=== PATIENT | female | born 1990 | race Caucasian/White ===

== ENCOUNTER 2016-11-10 19:52 | Inpatient (IN) ==
[2016-11-10] MEDS ORDERED: ONDANSETRON 4 MG/2 ML VIAL IV PRN (20:14)
[2016-11-10] MEDS ORDERED: BUTORPHANOL 2 MG/ML VIAL IV PRN (20:14)
[2016-11-10 20:48] LABS: Basophils # 0.1 10*3/uL (0.0-0.2); Basophils % 0.4 % (0.0-0.8); Eosinophils % 0.2 % (0.00-10.9); Hematocrit 32.4 VOL% (35.7-47.0); Hemoglobin 11.3 GM/DL (12.0-16.0); Immature Granulocytes % 1.7 %; Immature Granulocytes Absolute 0.23 #; Lymphocytes # 2.3 10*3/uL (1.4-4.0); Mean Corpuscular HGB Conc 34.9 GM/DL (32-36); Mean Corpuscular Hemoglobin 31 PG (27-34); Mean Corpuscular Volume 87.6 FL (87-102); Mean Platelet Volume 10.7 FL (9.6-12.0); Monocytes # 0.8 10*3/uL (0.11-0.8); Monocytes % 5.8 % (1.7-12.7); Neutrophils # 10.2 10*3/uL (1.4-7.4); Neutrophils % 74.9 % (38.7-73.9); Platelet Count 210 T/CUMM (130-400); Red Cell Distribution Width 14.5 % (9.3-17.3); White Blood Count 13.7 T/CUMM (4-12)
[2016-11-10 21:18] LABS: Alanine Aminotransferase 10 U/L (13-56); Albumin 2.5 G/DL (3.4-5.0); Alkaline Phosphatase 172 U/L (45-117); Aspartate Amino Transferase 10 U/L (0-37); Bilirubin,Total < 0.39 MG/DL (0.2-1.0); Blood Urea Nitrogen 12 MG/DL (7-18); Calcium 9.1 MG/DL (8.5-10.1); Glucose 115 MG/DL (74-106); Osmolality,Calculated 279.4 MOS/KG (273-304); Sodium 140 MMOL/L (136-145); Total Protein 6.6 G/DL (6.4-8.3)
[2016-11-10] MEDS ORDERED: DINOPROSTONE 10 MG VAG.INSERT VAG ONE ×2 (21:58→22:00)
[2016-11-10] MEDS: LACTATED RINGERS 1,000 ML IV SCH (22:09)
[2016-11-11] MEDS: LACTATED RINGERS 1,000 ML IV SCH ×3 (02:56→20:44)
[2016-11-11] MEDS ORDERED: DINOPROSTONE 10 MG VAG.INSERT VAG ONE (06:30)
[2016-11-11] MEDS ORDERED: OXYTOCIN/LR 20 UNIT/1,000 ML BAG IV SCH (07:30)
[2016-11-11] MEDS ORDERED: LACTATED RINGERS 1,000 ML IV ONE (14:42)
[2016-11-11] MEDS ORDERED: FAMOTIDINE 20 MG/2 ML VIAL IV ONE (14:42)
[2016-11-11] MEDS ORDERED: CITRIC ACID/SODIUM CITRATE 30 ML UDCUP PO ONE (14:42)
[2016-11-11] MEDS ORDERED: hydrOXYzine HCL 25 MG/1 ML VIAL IM PRN (14:43)
[2016-11-11] MEDS ORDERED: diphenhydrAMINE 50 MG/1 ML VIAL IV PRN ×2 (14:43)
[2016-11-11] MEDS ORDERED: PROMETHAZINE 25 MG/1 ML VIAL IM ONE (14:43)
[2016-11-11] MEDS ORDERED: fentaNYL 2 MCG/ROPIV 0.2% EPID 150 ML EPIDURAL SCH (14:43)
[2016-11-11] MEDS ORDERED: ePHEDrine 50 MG/ML AMP IV PRN (14:43)
[2016-11-11] MEDS ORDERED: ONDANSETRON 4 MG/2 ML VIAL ONE (17:10)
[2016-11-11] MEDS ORDERED: LIDOCAINE 2%/EPI 20 ML VIAL ONE (17:10)
[2016-11-11] MEDS ORDERED: PROPOFOL 200 MG/20 ML VIAL IV ONE (17:10)
[2016-11-11] MEDS ORDERED: SUCCINYLCHOLINE 200 MG/10 ML VIAL ONE (17:10)
--- NOTE | 2016-11-11 18:46 | Event Note ---
s/p epidural pelvic -/-3 ... little change from earlier today. IUPC showes a good contraction pattern. I have recommended a .
[2016-11-11] MEDS ORDERED: METHYLERGONOVINE 0.2 MG/1 ML AMP ONE (21:23)
[2016-11-11] MEDS ORDERED: OXYTOCIN 10 UNIT/ML VIAL ONE (21:26)
[2016-11-11] MEDS ORDERED: miSOPROStol 200 MCG TABLET ONE (21:35)
--- NOTE | 2016-11-11 21:53 | Operative Note ---
Date of procedure: 11/11/16 Pre-op diagnosis: IUP at 39 weeks, FTP past 3 cm Post-op diagnosis: same Procedure: Primary LTCS findings: male, vertex, Nuchal x 1, wt 7 pounds 13 ounces, apgars 4 and 8 normal uterus tubes ovaries Procedure: The patient was admitted for a induction she received Cervidil and Pitocin and never progressed past 3 cm so a section was in order. Risks benefits alternatives and complications were reviewed with the patient patient was amenable to procedure patient was thus taken back to the operating room where epidural anesthesia was not found to be adequate so general anesthesia was required. After general anesthesia induction immediately a Pfannenstiel skin incision was made and carried out to the underlying fascia the fascia was incised in the midline and extended laterally with Byrne scissors. Superior aspect of the fascial incision was dissected off the rectus muscle the same was done with the inferior aspect of the fascial incision. The rectus muscle was divided in the midline the peritoneum identified and entered sharply with Metzenbaum scissors extended superiorly and inferiorly with good visualization of the bladder. The bladder blade was inserted the vesicouterine peritoneum identified and entered sharply with Metzenbaum scissors extended laterally and the bladder flap was created digitally. The lower uterine segment was incised and extended laterally and superiorly in the infant's head was delivered atraumatically the cord was noted to be wrapped around the nuchal and was easily reduced and the rest of the infant was delivered the cord was clamped and cut and the was handed off to the waiting nurse unit. The placenta was removed manually the uterus cleared of all clots and debris with a clean dry sponge. The uterus was then exteriorized in the lower uterine segment was repaired using 0 Vicryl in a running locked fashion with a second imbricating layer to achieve excellent hemostasis. The tubes and ovaries look within normal limits. At this point the uterus was not bleeding but it was somewhat atonic a total of 20 cc of pit was injected intramuscularly into the uterus directly. 0.2 Methergine was also given about 10 minutes prior to the Pitocin injecting. Throughout this process the hemostasis was noted. The uterus was then introduced back into the uterine cavity after extensive massaging was performed. Irrigation was performed. Surgicel was placed over the lower uterine segment incision and Interceed over the anterior surface of the uterus. The peritoneum was reapproximated using 3-0 Vicryl in a running fashion the muscle was reapproximated using 3-0 Vicryl in a vertical interrupted fashion. The fascia was reapproximated using 0 Vicryl in a running fashion starting either angle and tying in the middle. The subcutaneous fat was re-approximated using 3-0 Vicryl in a running fashion. And the skin was reapproximated using Ensorb but maribeth. Sponge lap and instrument counts were correct 3. The infant went to the regular nursery. Anesthesia: GETA, epidural Surgeon / Physician: Perri Cardoso Estimated blood loss: other (400) IV fluids: 1,500 Urine output: 200 (clear) Specimens: none sent Condition: stable Results - Labs CBC & BMP: 11/10/16 20:40 11/10/16 20:40 Discharge Plan - Discharge Medications No Action No122/Iron/Folic Acid [ Multi Tablet] 1 tablet PO DAILY - Follow Up or Referral - Forms/Instructions
[2016-11-11] MEDS ORDERED: MORPHINE 10 MG/10 ML VIAL ONE (22:09)
[2016-11-11] MEDS ORDERED: fentaNYL 100 MCG/2 ML VIAL ONE (22:09)
[2016-11-11] MEDS ORDERED: MIDAZOLAM 2 MG/2 ML VIAL ONE (22:09)
[2016-11-11] MEDS ORDERED: NALOXONE 0.4 MG/ML VIAL IV PRN (22:18)
[2016-11-11] MEDS ORDERED: HYDROmorphone 2 MG/1 ML VIAL ONE (22:19)
[2016-11-11] MEDS ORDERED: HYDROmorphone 2 MG/1 ML VIAL IV ONE (22:19)
[2016-11-11] MEDS ORDERED: HYDROmorphone PCA 30 MG/30 ML SYRINGE IV SCH (22:30)
[2016-11-11] MEDS ORDERED: OXYTOCIN/LR 20 UNIT/1,000 ML BAG IV ONE (23:36)
[2016-11-11] MEDS ORDERED: ACETAMINOPHEN 325 MG TABLET PO PRN (23:36)
[2016-11-11] MEDS ORDERED: RHO(D) IMMUNE GLOBULIN 300 MCG SYRINGE IM ONE (23:36)
[2016-11-12] MEDS ORDERED: METHYLERGONOVINE 0.2 MG/1 ML AMP ONE (02:04)
[2016-11-12] MEDS: METHYLERGONOVINE 0.2 MG/1 ML AMP IM SCH ×2 (02:06→08:33)
[2016-11-12] MEDS ORDERED: OXYTOCIN/LR 20 UNIT/1,000 ML BAG IV ONE (02:24)
[2016-11-12 04:48] LABS: Basophils # 0.1 10*3/uL (0.0-0.2); Basophils % 0.2 % (0.0-0.8); Hematocrit 27.7 VOL% (35.7-47.0); Hemoglobin 9.4 GM/DL (12.0-16.0); Immature Granulocytes % 0.8 %; Immature Granulocytes Absolute 0.18 #; Lymphocytes % 9.1 % (21.3-54.2); Mean Corpuscular HGB Conc 33.9 GM/DL (32-36); Mean Corpuscular Hemoglobin 30 PG (27-34); Mean Corpuscular Volume 88.5 FL (87-102); Monocytes # 1.2 10*3/uL (0.11-0.8); Monocytes % 5.8 % (1.7-12.7); Neutrophils # 18.1 10*3/uL (1.4-7.4); Neutrophils % 84.1 % (38.7-73.9); Platelet Count 177 T/CUMM (130-400); Red Blood Count 3.13 MC/CUMM (3.8-5.5); Red Cell Distribution Width 14.3 % (9.3-17.3); White Blood Count 21.5 T/CUMM (4-12)
[2016-11-12 05:27] LABS: Anisocytosis 1+; Band Neutrophils 2 % (0-10); Lymphocytes 8 % (20-55); Macrocytosis 1+; Platelet Estimate Normal; Segmented Neutrophils 85 % (50-85); Total Cells Counted 100
--- NOTE | 2016-11-12 12:47 | OB/GYN Progress Note ---
Assessment and Plan (1) Status post delivery Status: Acute Assessment and plan: POD#1 s/p Primar LTCS for FTP. Continue routine PP/Post op care. Recheck CBC in am due to WBCs elevated Current Visit: Yes RETORT [facility] - PN: Subj Interval history: The pt is feeling ok. Her pain and bleeding are under control. She has not started passing gas. She has not voided yet . Exam RETORT [employer]ONE - Constitutional Vitals: Vital Signs Temp Pulse Pulse Resp BP BP Pulse Ox 11/12/16 03:44 97.4 F L 82 18 116/52 11/12/16 00:00 97.9 F 82 18 113/63 11/11/16 22:44 67 20 116/66 100 11/11/16 20:00 97.6 F 85 20 110/66 11/11/16 16:00 97.2 F L 81 20 133/73 General appearance: normal weight, no acute distress - Respiratory Respiratory exam: Absent: accessory muscle use - Cardiovascular Cardiovascular exam: Present: regular rate and rhythm - GI/Abdominal GI/Abdominal exam: Present: soft, other (dressing clean and dry) - Extremities Exam Extremities exam: Absent: calf tenderness - Neurological Exam Neurological exam: Present: alert, oriented X3 - Psychiatric Psychiatric exam: Present: normal affect Results - Labs CBC & BMP: 11/12/16 04:36 11/10/16 20:40
--- NOTE | 2016-11-12 12:47 | Discharge Summary ---
Hospital Course - Hospital Course Hospital Course: The patient was admitted at 39 weeks for a Cervidil and then Pitocin induction but she never progressed past 3 cm. She underwent a primary section on 11/11/2016 without any complications. Please review the op note for details on the procedure. Specialty Discharge - Follow Up or Referrals Follow up with: Perri Cardoso MD [Physician] - 1 Week Discharge Plan - Discharge Data Disposition: Disch To Home/Self Care Condition at Discharge: Stable Discharge Diet: advance to your usual diet Activity: no lifting Hygiene: may shower Weight Bearing at Discharge: full weight bearing Driving: not until seen by doctor Contact your physician if you experience:: fever over 101, Difficulty voiding, Redness or swelling, Nausea/Vomiting, Shortness of breath, Bleeding, pain uncontrolled by pain medications - Discharge Medications New HYDROcodone/ACETAMIN 5-325 [[place] 5-325] 1 - 2 tablet PO Q6H PRN #30 tablet PRN Reason: Abdominal Pain No Action No122/Iron/Folic Acid [ Multi Tablet] 1 tablet PO DAILY - Follow Up or Referral - Forms/Instructions Exam - Constitutional Vitals: Period Temp Pulse Resp BP Sys/Hunt Pulse Ox Last 24 Hr 97.2 F-97.9 F 67-85 18-20 110-133/52-73 100 Discharge Results Procedures and tests throughout hospitalization: Pending Orders 11/10/16 20:15 Urinalysis Routine Labs on day of discharge: Labs from last 24 hours 11/12/16 04:36 WBC 21.5 H D RBC 3.13 L Hgb 9.4 L Hct 27.7 L MCV 88.5 MCH 30 MCHC 33.9 RDW 14.3 Plt Count 177 MPV 11.0 Neut % (Auto) 84.1 H Lymph % (Auto) 9.1 L [place] % (Auto) 5.8 Eos % (Auto) 0.0 Baso % (Auto) 0.2 Neut # (Auto) 18.1 H Lymph # (Auto) 2.0 [place] # (Auto) 1.2 H Eos # (Auto) 0.0 Baso # (Auto) 0.1 Total Counted 100 Immature Gran % 0.8 Nucleated RBC % 0.0 Immature Gran # 0.18 Segmented Neutrophils 85 Band Neutrophils 2 Lymphocytes 8 L Monocytes 5 Nucleated RBCs # 0.00 Platelet Estimate Normal Immature Plt Fraction 0.0 Anisocytosis 1+ Macrocytosis 1+ DS: Provider Date of admission: 11/10/16 20:27 Primary care physician: . No PCP Attending physician on admission: Perri Vázquez- Consults: 11/10/16 20:15 Consult to Anesthesiology [CONS] Routine Consulting Provider: Reason for Anesthesiology: Epidural Consult Comment: Epidural for pain managment 11/11/16 23:36 Consult to Plastics Seasoner Operator [CONS] Routine Consult Plastics Seasoner Operator: Breast Feeding Discharging clinician: Perri Vázquez-
[2016-11-12] MEDS: IBUPROFEN 800 MG TABLET PO PRN (12:56)
[2016-11-12] MEDS: MULTIVITAMIN (PRENATAL) TABLET PO SCH (17:15)
[2016-11-12] MEDS: MAGNESIUM HYDROXIDE SUSP 30 ML UDCUP PO PRN (20:07)
[2016-11-12] MEDS: DOCUSATE SODIUM 100 MG CAPSULE PO SCH ×2 (20:07→20:09)
[2016-11-12] MEDS ORDERED: ONDANSETRON 4 MG TABLET PO PRN (20:12)
[2016-11-13] MEDS: IBUPROFEN 800 MG TABLET PO PRN ×3 (03:16→21:35)
[2016-11-13] MEDS: SIMETHICONE CHEW 80 MG TABLET PO PRN ×3 (03:16→21:35)
[2016-11-13 04:47] LABS: Basophils % 0.3 % (0.0-0.8); Eosinophils % 0.3 % (0.00-10.9); Hematocrit 24.2 VOL% (35.7-47.0); Hemoglobin 8.1 GM/DL (12.0-16.0); Immature Granulocytes % 1.2 %; Immature Granulocytes Absolute 0.18 #; Lymphocytes # 2.4 10*3/uL (1.4-4.0); Lymphocytes % 15.9 % (21.3-54.2); Mean Corpuscular HGB Conc 33.5 GM/DL (32-36); Mean Corpuscular Hemoglobin 30 PG (27-34); Mean Platelet Volume 10.6 FL (9.6-12.0); Monocytes # 1.2 10*3/uL (0.11-0.8); Monocytes % 7.7 % (1.7-12.7); Neutrophils # 11.3 10*3/uL (1.4-7.4); Neutrophils % 74.6 % (38.7-73.9); Platelet Count 202 T/CUMM (130-400); Red Blood Count 2.69 MC/CUMM (3.8-5.5); Red Cell Distribution Width 14.6 % (9.3-17.3); White Blood Count 15.2 T/CUMM (4-12)
[2016-11-13] MEDS: DOCUSATE SODIUM 100 MG CAPSULE PO SCH ×2 (08:15→21:35)
[2016-11-13] MEDS: MAGNESIUM HYDROXIDE SUSP 30 ML UDCUP PO PRN ×2 (08:15→21:35)
[2016-11-13] MEDS: MULTIVITAMIN (PRENATAL) TABLET PO SCH (08:15)
--- NOTE | 2016-11-13 10:44 | Progress Note ---
Family Medicine PN Sub Interval history: Early day 2 postop section without complaints other than some gas pains. Exam (Progress Note) - Constitutional Vitals: Period Temp Pulse Resp BP Sys/Hunt Pulse Ox Last 24 Hr 97.1 F-98.0 F 73-105 18-20 95-122/55-73 98-99 General appearance: no acute distress - Head Head exam: Present: normal inspection - Neck Neck exam: Present: normal inspection - Cardiovascular Cardiovascular exam: Present: regular rate and rhythm - GI/Abdominal GI/Abdominal exam: Present: normal bowel sounds - Extremities Exam Extremities exam: Present: normal inspection - Back Exam Back exam: Present: normal inspection - Psychiatric Psychiatric exam: Present: normal affect, normal mood - Skin Skin exam: Present: normal color, warm, dry Results - Labs CBC & BMP: 11/13/16 04:36 11/10/16 20:40 Specialty Discharge - Follow Up or Referrals Follow up with: Perri Cardoso MD [Physician] - 1 Week
[2016-11-14] MEDS: SIMETHICONE CHEW 80 MG TABLET PO PRN (03:45)
[2016-11-14] MEDS: DOCUSATE SODIUM 100 MG CAPSULE PO SCH (08:23)
[2016-11-14] MEDS: MULTIVITAMIN (PRENATAL) TABLET PO SCH (08:23)
[2016-11-14] MEDS ORDERED: DIPH/TET/ACEL PERT BOOSTER VACCINE 0.5 ML VIAL IM ONE (08:28)
[2016-11-14] MEDS ORDERED: MEASLES/MUMPS/RUBELLA VACCINE 0.5 ML VIAL SUBCUT ONE (09:01)
[2016-11-14 11:39] VITALS: BP 128/62
== END 2016-11-14 15:55 | disposition home or self-care (01) | DRG 540 ==
LOC: N.LDOUT 19:52 → N.LD 19:58 → N.OB 11-12 16:55
PROVIDERS: ADMIT Obstetrics & Gynecology; ATTEND Obstetrics & Gynecology
PROC: LDCSECT (ICD-10-PCS; 2016-11-11 20:00)